=== PATIENT | male | born 1985 | race African-American/Black ===

== ENCOUNTER 2016-12-29 17:53 | Emergency (ER) | payer SELFPAY ==
[~2016-12-29] VITALS: Ht 177.8 cm; Wt 77.1 kg
[2016-12-29 18:02] VITALS: BP 137/108
[2016-12-29] MEDS ORDERED: DIPHTH,PERTUSS(ACELL),TET TOX 0.5 ML DISP.SYRIN. VAX IM ONE (18:15)
[2016-12-29] MEDS ORDERED: LIDOCAINE 1% / SOD BICARB 8.4% 20 ML VIAL. IJ ONE (18:30)
[2016-12-29] MEDS ORDERED: HYDROcodone/APAP 5/325MG 1 TAB TABLET PO ONE (18:30)
[2016-12-29] MEDS ORDERED: HYDR-971 PO (19:18)
[2016-12-29] MEDS ORDERED: SULF1TAB24 PO (19:18)
--- NOTE | 2016-12-29 19:18 | PHYS DOC ---
Past Medical History Past Medical History: No Pertinent History Past Surgical History: No Surgical History Alcohol Use: None Drug Use: None Adult General Chief Complaint Chief Complaint: FINGER INJURY HPI HPI Patient is a 31 year old male who presents with left index finger nailbed pain and swelling that began 2 days ago. Patient states he chews on his nails. Patient denies any fevers. Review of Systems Review of Systems Constitutional: See history of present illness Musculoskeletal: Denies back pain or joint pain [] Integument: left index finger nailbed pain and swelling Neurologic: Denies headache, focal weakness or sensory changes [] Current Medications Current Medications Current Medications Medications (Trade) Dose Ordered Sig/Myles Start Time Stop Time Status Last Admin Dose Admin Acetaminophen/ Hydrocodone Bitart (Lortab 5/325) 1 tab 1X ONCE 12/29/16 18:30 12/29/16 18:31 DC 12/29/16 18:19 1 TAB Diphtheria/ Tetanus/Acell Pertussis (Boostrix) 0.5 ml ONCE ONCE 12/29/16 18:15 12/29/16 18:16 DC 12/29/16 18:32 0.5 ML Lidocaine/Sodium Bicarbonate (Buffered Lidocaine 1%) 20 ml 1X ONCE 12/29/16 18:30 12/29/16 18:31 DC 12/29/16 18:33 20 ML Allergies Allergies Allergies Coded Allergies Type Severity Reaction Last Updated Verified No Known Drug Allergies 12/29/16 No Physical Exam Physical Exam Constitutional: Well developed, well nourished, no acute distress, non-toxic appearance. [] Skin: Nail bed around the left index finger with mild swelling consistent with paronychia. There is slight erythema around the swollen area. The area is fluctuant and very tender to palpate. Back: No tenderness, no CVA tenderness. [] Extremities: No tenderness, no cyanosis, no clubbing, ROM intact, no edema. [] Neurologic: Alert and oriented X 3, normal motor function, normal sensory function, no focal deficits noted. [] Psychologic: Affect normal, judgement normal, mood normal. [] Current Patient Data Vital Signs Vital Signs Date Time Temp Pulse Resp B/P (MAP) Pulse Ox O2 Delivery O2 Flow Rate FiO2 12/29/16 18:02 98.4 113 18 99 Room Air 98.4 EKG EKG [] Radiology/Procedures Radiology/Procedures Indication: Paronychia of the left index finger Procedure: The patient was positioned appropriately. Local anesthesia was buffered lidocaine, patient did not tolerate it. An incision was then made over the apex of the lesion and mild amount of bloody yellow material was expressed. The drainage cavity was irrigated and covered with sterile gauze. The patients tetanus status updated as needed. The patient tolerated the procedure well. Complications: none.[] Course & Med Decision Making Course & Med Decision Making Pertinent Labs and Imaging studies reviewed. (See chart for details) Patient has paronychia of the left index finger which was drained by me as noted in procedures. Discharged with Bactrim and hydrocodone for pain. Follow- up with PCP in 1-2 weeks. Recommended Epsom salts soaking twice a day. Discourage patient from chewing his fingernails. Tetanus was updated. Dragon Disclaimer Dragon Disclaimer This electronic medical record was generated, in whole or in part, using a voice recognition dictation system. Departure Departure Impression: Primary Impression: Paronychia of finger of left hand Disposition: 01 HOME, SELF-CARE Condition: STABLE Referrals: NO PCP (PCP) follow up with your doctor in one week Patient Instructions: Paronychia, [id number] Additional Instructions: You were seen for paronychia infection of the left index finger. This is a common infection for people who chew their fingernails, consider stopping this bad habit. Soak the finger in Epsom salted warm water twice a day. Take the antibiotics prescribed until completed. Do not drive or operate machinery on the pain medicine. Come back to the ED if symptoms worsen Scripts Hydrocodone/Apap 5-325 (NORCO 5-325 TABLET) 1 Each Tablet 1-2 TAB PO Q4-6HRS, #40 TAB Prov: JAIME VERGARA APRN 12/29/16 Sulfamethoxazole/Trimethoprim (BACTRIM DS TABLET) 1 Each Tablet 1 TAB PO BID, #20 TAB Prov: JAIME VERGARA APRN 12/29/16 JAIME VERGARA APRN Dec 29, 2016 19:18
== END 2016-12-29 19:25 | disposition home or self-care (01) ==
LOC: ER 17:53
DX: L03.012 Cellulitis of left finger (principal)
CPT/HCPCS: 10060; 90471; 90715; 99283-25

== ENCOUNTER 2017-01-02 20:04 | Emergency (ER) | payer SELFPAY ==
[~2017-01-02] VITALS: Ht 177.8 cm; Wt 81.6 kg
[~2017-01-02 20:04] MED LIST: HYDR-971 PO; SULF1TAB24 PO
[2017-01-02 20:32] VITALS: BP 107/60
--- NOTE | 2017-01-02 20:59 | PHYS DOC ---
Past Medical History Past Medical History: No Pertinent History Past Surgical History: No Surgical History Alcohol Use: None Drug Use: None Adult General Chief Complaint Chief Complaint: WOUND CHECK [facility] HPI Patient is a 31 year old male presents to the emergency department with request for wound check on his left index finger. He was evaluated in the emergency department 4 days ago and diagnosed with a paronychia. Paronychia was drained, patient was discharged home with prescription for Bactrim and hydrocodone No. 40. Patient reports he lost his prescription for hydrocodone and is requesting a refill. Review of Systems Review of Systems Constitutional: Denies fever or chills [] Eyes: Denies change in visual acuity, redness, or eye pain [] HENT: Denies nasal congestion or sore throat [] Respiratory: Denies cough or shortness of breath [] Cardiovascular: No additional information not addressed in HPI [] GI: Denies abdominal pain, nausea, vomiting, bloody stools or diarrhea [] : Denies dysuria or hematuria [] Musculoskeletal: Denies back pain or joint pain [] Integument: wound left index finger Allergies Allergies Allergies Coded Allergies Type Severity Reaction Last Updated Verified No Known Drug Allergies 12/29/16 No Physical Exam Physical Exam Constitutional: Well developed, well nourished, no acute distress, non-toxic appearance. [] Neck: Normal range of motion, no tenderness, supple without lymphadenopathy, no stridor. [] Cardiovascular:Heart rate regular rhythm, no murmur [] Lungs & Thorax: Bilateral breath sounds clear to auscultation [] Skin: Warm, dry, no erythema, no rash. [] Back: No tenderness, no CVA tenderness. [] Extremities: Left index finger, no swelling, no erythema. There are small amount of purulent discharge around the the medial cuticle. There is no fluctuance, no erythema. Full range of motion without difficulty. Neurovascular intact distally. Neurologic: Alert and oriented X 3, normal motor function, normal sensory function, no focal deficits noted. [] Psychologic: Affect normal, judgement normal, mood normal. [] Current Patient Data Vital Signs Vital Signs Date Time Temp Pulse Resp B/P (MAP) Pulse Ox O2 Delivery O2 Flow Rate FiO2 01/02/17 20:32 98.2 77 18 98 Room Air 98.2 EKG EKG [] Radiology/Procedures Radiology/Procedures [] Course & Med Decision Making Course & Med Decision Making Pertinent Labs and Imaging studies reviewed. (See chart for details) [] Dragon Disclaimer Dragon Disclaimer This electronic medical record was generated, in whole or in part, using a voice recognition dictation system. Departure Departure Impression: Primary Impression: Visit for wound check Disposition: HOME, SELF-CARE Condition: STABLE Referrals: NO PCP (PCP) [facility] Patient Instructions: Paronychia Additional Instructions: Epsom salt soaks every 2 hours for 20 minutes each time. Scripts Naproxen (NAPROSYN) 500 Mg Tablet 500 MG PO BID Y for PAIN, #20 TAB Prov: OLIVIER JIMENEZ APRN 01/02/17 OLIVIER JIMENEZ APRN Jan 02, 2017 20:59
[2017-01-02] MEDS ORDERED: NAPR500T PO (21:16)
== END 2017-01-02 21:24 | disposition home or self-care (01) ==
LOC: ER 20:04
DX: Z48.01 Encounter for change or removal of surgical wound dressing (principal)
CPT/HCPCS: 99282